=== PATIENT | female | born 1995 | race Caucasian/White ===

== ENCOUNTER → 2018-01-24 | Outpatient (CLI) | payer BC ==
--- NOTE | 2018-01-24 15:45 | CT ---
EXAMINATION TYPE: CT sinus wo con DATE OF EXAM: 01/24/2018 COMPARISON: NONE HISTORY: WOOTEN and head pressure due to sinusitis CT DLP: 633 mGycm. Automated Exposure Control for Dose Reduction was Utilized. TECHNIQUE: CT scan of the sinuses is performed without contrast, axial images are obtained, coronal r eformatted images are also reviewed. FINDINGS: There is mucosal thickening involving the maxillary antrum bilaterally. Tiny mucous retenti on cyst or polyps noted. Ostiomeatal complex patent bilaterally. Frontal sinus, ethmoid air cells, and sphenoid sinuses have a normal appearance. No air-fluid levels. The ostiomeatal complex is patent bilaterally on the coronal images. Visualized portion of mastoid air cells show no abnormal opacification. The globes are intact bilate rally. IMPRESSION: Mild chronic maxillary sinusitis.
== END | disposition home or self-care (01) ==
LOC: RADCTMAIN 15:16
PROVIDERS: ATTEND Otolaryngology
DX: J32.0 Chronic maxillary sinusitis (principal)
CPT/HCPCS: 70486

== ENCOUNTER 2020-09-02 06:58 | Emergency (ER) | payer BC ==
[2020-09-02 07:08] VITALS: TEMP 97.6
[2020-09-02] MEDS ORDERED: KETOROLAC 15 MG/ML 1 ML VIAL IVP STA (07:17)
--- NOTE | 2020-09-02 07:23 | ED ---
General Adult HPI - General Chief complaint: Chest Pain Stated complaint: Chest Pain Time Seen by Provider: 09/02/20 07:06 Source: patient, family Mode of arrival: ambulatory Limitations: no limitations - History of Present Illness Initial comments: Patient is a 24-year-old female presenting to the emergency Department with complaints of chest pain started approximately 8:30 last night. Patient states she noticed the pain increasing when she took in a deep breath. She also states that if she lays a certain position or turns either towards the left or right with her torso increases the pain as well. She denies any falls or trauma. She denies any shortness of breath, no recent fever or chills. She denies any recent illness. She denies any nausea or vomiting, she denies being . She denies any increase in activity or any new activities. She has no further complaints at this time. Upon arrival to the ER, she has tachycardia at 114, rest of vitals are normal. - Related Data Home Medications Medication Instructions Recorded Confirmed Ethinyl Estradiol/Drospirenone 1 tab PO DAILY 09/02/20 09/02/20 [Tabatha 28 Tablet] Fexofenadine/Pseudoephedrine 1 tab PO DAILY 09/02/20 09/02/20 [Stephanie-D 12 Hour Tablet] Loratadine [Claritin] 10 mg PO DAILY 09/02/20 09/02/20 Previous Rx's Medication Instructions Recorded Azithromycin [Zithromax Z-pack (6 0 mg PO DIRECTED #1 pack 09/02/20 tabs)] Allergies Allergy/AdvReac Type Severity Reaction Status Date / Time Penicillins Allergy family Verified 09/02/20 08:13 history tree and shrub pollen Allergy Dyspnea Verified 09/02/20 08:13 birds Allergy Dyspnea Uncoded 09/02/20 08:13 Review of Systems ROS Statement: Those systems with pertinent positive or pertinent negative responses have been documented in the HPI. ROS Other: All systems not noted in ROS Statement are negative. Past Medical History Past Medical History: No Reported History Additional Past Medical History / Comment(s): kidney stones post flu History of Any Multi-Drug Resistant Organisms: None Reported Past Surgical History: Appendectomy Additional Past Surgical History / Comment(s): colonoscopy Past Anesthesia/Blood Transfusion Reactions: No Reported Reaction, Motion Sickness Past Psychological History: No Psychological Hx Reported Smoking Status: Never smoker Past Alcohol Use History: Occasional Past Drug Use History: None Reported General Exam - General Exam Comments Initial Comments: GENERAL: Patient is well-developed and well-nourished. Patient is nontoxic and in no acute distress. HEAD: Atraumatic, normocephalic. EYES: Pupils equal round and reactive to light, extraocular movements intact, sclera anicteric, conjunctiva are normal. Eyelids were unremarkable. ENT: TMs normal, nares patent, oropharynx clear without exudates. Moist mucous membranes. NECK: Normal range of motion, supple without lymphadenopathy or JVD. LUNGS: Unlabored respirations. Breath sounds clear to auscultation bilaterally and equal. No wheezes rales or rhonchi. HEART: Slightly tachycardia rate and rhythm without murmurs, rubs or gallops. ABDOMEN: Soft, nontender, normoactive bowel sounds. No guarding, no rebound. No masses appreciated. : Deferred MUSCULOSKELETAL: Normal extremities with adequate strength and normal range of motion, no pitting or edema. No clubbing or cyanosis. NEUROLOGICAL: Patient is alert and oriented x 3. Motor and sensory are also intact. Cranial nerves II through XII grossly intact. Symmetrical smile. Normal speech, normal gait. PSYCH: Normal mood, normal affect. SKIN: Warm, Dry, normal turgor, no rashes or lesions noted. 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 Ventricular rate 91, NE interval 146, QT 374. Medical Decision Making - Medical Decision Making Patient's 24-year-old female here for chest pain that started approximately 8:30 last night. No falls or trauma. She has tachycardia upon arrival at 114, rest of vitals are normal, no fevers. EKG shows no acute changes. Labs are unremarkable, negative d-dimer, negative troponin. Chest x-ray shows a new left lateral posterior basilar acute infiltrate. I did offer patient Toradol however she declined. I discussed these findings with the patient. He also discussed getting Covid tested however patient declined at this time. Patient will be started on azithromycin for pneumonia. She is stable for discharge. She can follow-up with her regular doctor. She can also take ibuprofen or Tylenol for discomfort. She is in agreement with this plan of care. Return parameters were discussed with the patient she verbalized understanding. Case discussed with Dr. Johns. - Lab Data Result diagrams: 09/02/20 07:22 09/02/20 07:22 Lab Results 09/02/20 09/02/20 09/02/20 Range/Units 07:22 07:22 07:22 WBC 5.0 (3.8-10.6) k/uL RBC 4.45 (3.80-5.40) m/uL Hgb 13.4 (11.4-16.0) gm/dL Hct 38.8 (34.0-46.0) % MCV 87.2 (80.0-100.0) fL MCH 30.2 (25.0-35.0) pg MCHC 34.6 (31.0-37.0) g/dL RDW 12.4 (11.5-15.5) % Plt Count 270 (150-450) k/uL MPV 6.9 Neutrophils % 57 % Lymphocytes % 30 % Monocytes % 7 % Eosinophils % 3 % Basophils % 1 % Neutrophils # 2.8 (1.3-7.7) k/uL Lymphocytes # 1.5 (1.0-4.8) k/uL Monocytes # 0.3 (0-1.0) k/uL Eosinophils # 0.1 (0-0.7) k/uL Basophils # 0.1 (0-0.2) k/uL D-Dimer 0.47 (<0.60) mg/L FEU Sodium 137 (137-145) mmol/L Potassium 4.0 (3.5-5.1) mmol/L Chloride 105 (98-107) mmol/L Carbon Dioxide 27 (22-30) mmol/L Anion Gap 5 mmol/L BUN 10 (7-17) mg/dL Creatinine 0.68 (0.52-1.04) mg/dL Est GFR (CKD-EPI)AfAm >90 (>60 ml/min/1.73 sqM) Est GFR (CKD-EPI)NonAf >90 (>60 ml/min/1.73 sqM) Glucose 91 (74-99) mg/dL Calcium 9.3 (8.4-10.2) mg/dL Total Bilirubin 0.5 (0.2-1.3) mg/dL AST 21 (14-36) U/L ALT 14 (4-34) U/L Alkaline Phosphatase 84 (38-126) U/L Troponin I (0.000-0.034) ng/mL Total Protein 7.4 (6.3-8.2) g/dL Albumin 4.0 (3.5-5.0) g/dL 09/02/20 Range/Units 07:22 WBC (3.8-10.6) k/uL RBC (3.80-5.40) m/uL Hgb (11.4-16.0) gm/dL Hct (34.0-46.0) % MCV (80.0-100.0) fL MCH (25.0-35.0) pg MCHC (31.0-37.0) g/dL RDW (11.5-15.5) % Plt Count (150-450) k/uL MPV Neutrophils % % Lymphocytes % % Monocytes % % Eosinophils % % Basophils % % Neutrophils # (1.3-7.7) k/uL Lymphocytes # (1.0-4.8) k/uL Monocytes # (0-1.0) k/uL Eosinophils # (0-0.7) k/uL Basophils # (0-0.2) k/uL D-Dimer (<0.60) mg/L FEU Sodium (137-145) mmol/L Potassium (3.5-5.1) mmol/L Chloride (98-107) mmol/L Carbon Dioxide (22-30) mmol/L Anion Gap mmol/L BUN (7-17) mg/dL Creatinine (0.52-1.04) mg/dL Est GFR (CKD-EPI)AfAm (>60 ml/min/1.73 sqM) Est GFR (CKD-EPI)NonAf (>60 ml/min/1.73 sqM) Glucose (74-99) mg/dL Calcium (8.4-10.2) mg/dL Total Bilirubin (0.2-1.3) mg/dL AST (14-36) U/L ALT (4-34) U/L Alkaline Phosphatase (38-126) U/L Troponin I <0.012 (0.000-0.034) ng/mL Total Protein (6.3-8.2) g/dL Albumin (3.5-5.0) g/dL Disposition Clinical Impression: Atypical chest pain, Pneumonia Disposition: HOME SELF-CARE Condition: Stable Instructions (If sedation given, give patient instructions): Pneumonia (ED) Additional Instructions: Please return to the Emergency Department if symptoms worsen or any other concerns. Take antibiotics as prescribed. May take ibuprofen or Tylenol for any discomfort. Follow up with your regular doctor. Prescriptions: Azithromycin [Zithromax Z-pack (6 tabs)] 0 mg PO DIRECTED #1 pack Is patient prescribed a controlled substance at d/c from ED?: No Referrals: Jackie Hoover MD [Primary Care Provider] - 1-2 days
[2020-09-02 07:30] LABS: Basophils # (A) 0.1 k/uL (0-0.2); Basophils % (A) 1 %; Eosinophils # (A) 0.1 k/uL (0-0.7); Eosinophils % (A) 3 %; HCT 38.8 % (34.0-46.0); HGB 13.4 gm/dL (11.4-16.0); Lymphocytes # (A) 1.5 k/uL (1.0-4.8); Lymphocytes % (A) 30 %; MCH 30.2 pg (25.0-35.0); MCHC 34.6 g/dL (31.0-37.0); MCV 87.2 fL (80.0-100.0); Mean Platelet Volume 6.9; Monocytes # (A) 0.3 k/uL (0-1.0); Monocytes % (A) 7 %; Neutrophils # (A) 2.8 k/uL (1.3-7.7); Neutrophils % (A) 57 %; Platelet Count 270 k/uL (150-450); RBC 4.45 m/uL (3.80-5.40); RDW 12.4 % (11.5-15.5)
[2020-09-02 07:37] VITALS: RESP 18
[2020-09-02 07:39] LABS: ALT 14 U/L (4-34); AST 21 U/L (14-36); African American GFR (CKD) >90 (>60 ml/min/1.73 sqM); Alkaline Phosphatase 84 U/L (38-126); Anion Gap 5 mmol/L; Blood Urea Nitrogen 10 mg/dL (7-17); Calcium 9.3 mg/dL (8.4-10.2); Carbon Dioxide 27 mmol/L (22-30); Chloride 105 mmol/L (98-107); Glucose 91 mg/dL (74-99); Non-African American GFR(CKD) >90 (>60 ml/min/1.73 sqM); Sodium 137 mmol/L (137-145); Total Bilirubin 0.5 mg/dL (0.2-1.3); Total Protein 7.4 g/dL (6.3-8.2)
--- NOTE | 2020-09-02 07:57 | XR ---
EXAMINATION TYPE: XR chest 2V DATE OF EXAM: 09/02/2020 COMPARISON: Chest x-ray [birth year] 1999 HISTORY: Chest pain for 12 hours. TECHNIQUE: Frontal and lateral views of the chest are obtained. FINDINGS: There is new patchy lateral left basilar opacity localize posteriorly on lateral view. Ri ght lung is clear. The cardiac silhouette size remains within normal limits. The osseous structures are intact. IMPRESSION: New left Lateral posterior basilar acute infiltrate.
[2020-09-02 08:21] VITALS: BP 100/76; PULSE 74
== END 2020-09-02 08:23 | disposition home or self-care (01) ==
LOC: EC 06:58
DX: J18.9 Pneumonia, unspecified organism (principal); Z53.29 Procedure and treatment not carried out because of patient's decision for other reasons; Z79.899 Other long term (current) drug therapy; Z88.0 Allergy status to penicillin; Z91.048 Other nonmedicinal substance allergy status; Z91.09 Other allergy status, other than to drugs and biological substances
CPT/HCPCS: 36415; 71046; 80053; 84484; 85025; 85379; 93005; 99285

== ENCOUNTER 2020-11-11 09:34 | Day surgery (SDC) | payer BC ==
[2020-11-10 08:06] VITALS: BMI 25.2
[~2020-11-11 09:34] MED LIST: LACTATED RINGERS 1,000 ML IV SCH
[2020-11-11 10:11] VITALS: RESP 16; TEMP 98.3
[2020-11-11] MEDS ORDERED: LIDOCAINE 1% (10MG/ML) FOR IV START INTRADERMA ONE (10:15)
[2020-11-11] MEDS ORDERED: PROPOFOL 10 MG/ML 20 ML VIAL IV ONE (10:16)
--- NOTE | 2020-11-11 10:22 | P.GSHP ---
History of Present Illness H&P Date: 11/11/20 Chief Complaint: Rectal bleeding 25-year-old female here today for rectal bleeding. Apparently she had a colonoscopy 5-6 years ago that was normal. Bleeding is heavy at times. No pain. No family history of colon cancer. Past Medical History Past Medical History: No Reported History Additional Past Medical History / Comment(s): bleeding with stool, hx kidney stones post flu History of Any Multi-Drug Resistant Organisms: None Reported Past Surgical History: Appendectomy Additional Past Surgical History / Comment(s): colonoscopy Past Anesthesia/Blood Transfusion Reactions: No Reported Reaction, Motion Sickness Smoking Status: Never smoker - Past Family History Mother Family Medical History: Cancer Additional Family Medical History / Comment(s): breast CA Medications and Allergies Home Medications Medication Instructions Recorded Confirmed Type Ethinyl Estradiol/Drospirenone 1 tab PO QAM 09/02/20 11/11/20 History [Tabatha 28 Tablet] Fexofenadine/Pseudoephedrine 1 tab PO DAILY 09/02/20 11/11/20 History [Stephanie-D 12 Hour Tablet] Allergies Allergy/AdvReac Type Severity Reaction Status Date / Time Penicillins Allergy family Verified 11/10/20 08:01 history tree and shrub pollen Allergy Dyspnea Verified 11/10/20 08:01 birds Allergy Dyspnea Uncoded 11/10/20 08:01 Surgical - Exam Vital Signs Temp Pulse Resp BP Pulse Ox 98.3 F 97 16 119/67 96 11/11/20 10:08 11/11/20 10:08 11/11/20 10:08 11/11/20 10:08 11/11/20 10:08 Physical exam: General: Well-developed, well-nourished HEENT: Normocephalic, sclerae nonicteric Abdomen: Nontender, nondistended Extremities: No edema Neuro: Alert and oriented Assessment and Plan (1) Rectal bleeding Narrative/Plan: Will proceed with colonoscopy Current Visit: Yes Status: Acute Code(s): K62.5 - HEMORRHAGE OF ANUS AND RECTUM SNOMED Code(s): 67918390
--- NOTE | 2020-11-11 10:36 | P.PCN ---
Date of Procedure: 11/11/20 Procedure(s) Performed: PREOPERATIVE DIAGNOSIS: Rectal bleeding POSTOPERATIVE DIAGNOSIS: Posterior anal fissure PROCEDURE: Colonoscopy ANESTHESIA: MAC SURGEON: Frederick Singh M.D. SPECIMENS: None ENDOSCOPIC PROCEDURE: The patient was placed on the endoscopy table in the left decubitus position. The Olympus colonoscope was inserted into the anus and passed under direct visualization to the base of the cecum. The appendiceal orifice was visualized. From that point the scope was slowly withdrawn insp ecting all surfaces carefully. There were no neoplastic inflammatory or polypoid lesions throughout the cecum, ascending, transverse, descending, sigmoid and rectum. There was no visible diverticulosis noted. Digital rectal examination revealed a small posterior anal fissure with no evidence of active bleeding. The patient was taken to the recovery room in stable condition per anesthesia guidelines. RECOMMENDATIONS: Begin topical nitroglycerin ointment. Follow-up if symptoms persist.
[2020-11-11 10:53] VITALS: BP 123/89; PULSE 77
== END 2020-11-11 11:19 | disposition home or self-care (01) ==
LOC: ORWHC2ENDO 09:34
PROVIDERS: ATTEND Surgery
DX: K60.2 Anal fissure, unspecified (principal); Z87.442 Personal history of urinary calculi; Z90.89 Acquired absence of other organs; Z98.890 Other specified postprocedural states; Z80.3 Family history of malignant neoplasm of breast; Z79.3 Long term (current) use of hormonal contraceptives; Z79.899 Other long term (current) drug therapy; Z88.0 Allergy status to penicillin; Z91.048 Other nonmedicinal substance allergy status; Z91.09 Other allergy status, other than to drugs and biological substances
CPT/HCPCS: 81025; 45378; J2704

== ENCOUNTER → 2021-09-07 | Outpatient (CLI) | payer BC ==
[~2021-09-07] MED LIST changes: -LACTATED RINGERS 1,000 ML IV SCH; +METHOTREXATE SODIUM (PF) 25 MG/ML 2 ML VIAL IM NR; +METHOTREXATE SODIUM IM NR
[2021-09-07 14:44] VITALS: BP 112/66; PULSE 88; RESP 16; TEMP 98.2
== END ==
LOC: PROCWHC3 14:17
PROVIDERS: ATTEND Obstetrics & Gynecology
DX: O00.90 Unspecified ectopic pregnancy without intrauterine pregnancy (principal)
CPT/HCPCS: 96402; J9260

== ENCOUNTER → 2022-05-25 | Outpatient (CLI) | payer BC ==
--- NOTE | 2022-05-25 22:10 | US ---
EXAMINATION TYPE: Transabdominal DATE OF EXAM: 05/25/2022 4:00 PM COMPARISON: 11/24/2021. CLINICAL HISTORY: Z36.89 ENCOUNTER FOR OTHER SPECIFIED SCR. Confirm dates EXAM PERFORMED: Transabdominal (TA) EXAM MEASUREMENTS: GESTATIONAL AGE / DATING Physician Established: Not yet established Dates by LMP: (9 weeks/6 days) EDC: 12/22/22 Dates by First Scan: No previous this is first scan Dates by Current Scan for: (9 weeks/3 days) EDC: 12/25/22 MATERNAL ANATOMY Uterus: 9.6 x 5.5 x 8.4cm Right Ovary: 2.9 x 2.8 x 2.3cm Left Ovary: 5.7 x 7.1 x 3.8cm Post CDS / Adnexa: wnl Presence of free fluid: no Presence of corpus luteal cyst: cystic area left ovary = 6.1 x 4.4 x 5.5cm Presence of subchorionic bleed: no GESTATION / SURVEY CRL: 2.6cm (9 weeks/3 days) Yolk Sac (normal less than 6mm): 0.4cm Heart Rate: 156 bpm Rhythm: Normal IUP: Viable IUP Date of LMP: 03/17/22 Beta HcG (if available): Not available at this time IMPRESSION: 1. Single live intrauterine gestation with ultrasound age of 9 weeks 3 days. 2. Large cystic area within left ovary measuring up to 6.1 cm. New from 11/24/2021.
== END | disposition home or self-care (01) ==
LOC: RADUSWWP 15:37
PROVIDERS: ATTEND Obstetrics & Gynecology
DX: O34.81 Maternal care for other abnormalities of pelvic organs, first trimester (principal); Z3A.09 9 weeks gestation of pregnancy
CPT/HCPCS: 76801

== ENCOUNTER 2022-11-18 10:34 | Outpatient (CLI) | payer BC ==
[2022-11-18 11:32] VITALS: BP 120/77; PULSE 110; RESP 16; TEMP 97.5
--- NOTE | 2022-11-18 19:46 | P.MSEPDOC ---
Presenting Problems - Arrival Data Date of Arrival on Unit: 11/18/22 Time of Arrival on Unit: 10:34 Mode of Transport: Ambulatory - Complaint OB-Reason for Admission/Chief Complaint: Headache, Other Comment: lower extremity edema Medical History - Information : 1 Para: 0 Term: 0 : 0 Abortions: Spontaneous or Elective: 0 Number of Living Children: 0 - Gestational Age Gestational Age by MARIE (wks/days): 35 Weeks and 1 Days Review of Systems - Review of Systems Constitutional: No problems Breast: No problems ENT: No problems Cardiovascular: No problems Respiratory: No problems Gastrointestinal: No problems Genitourinary: No problems Musculoskeletal: No problems Neurological: No problems Skin: No problems Vital Signs - Temperature Temperature: 97.5 F Temperature Source: Temporal Artery Scan - Pulse Pulse Oximetery Pulse Rate: 110 Pulse Assessment Method: Pulse Oximetry - Respirations Respiratory Rate: 16 Oxygen Delivery Method: Room Air O2 Sat by Pulse Oximetry: 96 - Blood Pressure Right Arm Blood Pressure: 120/77 Blood Pressure Mean: 91 Blood Pressure Source: Automatic Cuff Medical Screen Scoring - Assessment - Baby A Baseline FHR: 150 Heart Rate - NICHD Category: Category I (Normal) NST: Reactive Physician Notification - Physician Notified Physician Notified Date: 11/18/22 Physician Notified Time: 11:02 Physician: Nolberto Tucker New Order Received: Yes - Notification Comment Comment: Dr. Tucker on unit, report given on maternal c/o ankle and feet edema (2+. edema noted), WOOTEN last week. Pt denies any other pre-e symptoms and current BPs are. 120/77 and 119/77. Orders to obtain NST and once reactive pt can be discharged home with. instructions to increase rest and elevate legs. Maternal Triage Index - Maternal Triage Index Presenting for scheduled procedure w/no complaint: No - Stat/Priority 1 Stat Priority 1: No - Urgent/Priority 2 Urgent Priority 2: No - Prompt/Priority 3 Prompt Priority 3: No - Non-Urgent/Priority 4 Non-Urgent Priority 4: Yes Criteria Met for Priority 4: 35 1/7wks, WOOTEN (last week), lower extremity edema, initial BP 120/77 Disposition - Disposition OB Disposition: Discharge to home Discharge Date: 11/18/22 Discharge Time: 11:20 I agree with the RN Medical Screening Exam: Yes Case reviewed; plan agreed upon as documented in EMR&OBIX.: Yes Diagnosis: RELATED CONDITIONS, UNSPECIFIED, THIRD TRIMESTER (Patient presents to labor and delivery with concerns about elevated blood pressures. She had some swelling and headaches at home. The pressures here and in the o ffice were completely normal. At this time there is no evidence of preeclampsia. Patient discharged home follow up with Dr. Burnett as scheduled.)
== END 2022-11-18 11:20 | disposition home or self-care (01) ==
LOC: FBPOP 10:34
PROVIDERS: ATTEND Obstetrics & Gynecology
DX: O26.893 Other specified pregnancy related conditions, third trimester (principal); Z3A.35 35 weeks gestation of pregnancy; Z88.0 Allergy status to penicillin; Z91.048 Other nonmedicinal substance allergy status
CPT/HCPCS: 59025; 99213

== ENCOUNTER 2022-12-09 05:44 | Inpatient (IN) | payer BC ==
[2022-12-09] MEDS ORDERED: CARBOPROST TROMETHAMINE 250 MCG/ML 1 ML AMP IM PRN (06:01)
[2022-12-09] MEDS ORDERED: METHYLERGONOVINE 0.2 MG/ML 1 ML AMP IM PRN (06:01)
[2022-12-09] MEDS ORDERED: LIDOCAINE 0.5% (PF) 5 MG/ML (50 ML SDV) SQ PRN (06:01)
[2022-12-09] MEDS ORDERED: TERBUTALINE 1 MG/ML VIAL SQ PRN (06:01)
[2022-12-09] MEDS ORDERED: TRANEXAMIC ACID IN NACL,ISO-OS 1,000 MG in EMPTY BAG 1 BAG IV PRN (06:01)
[2022-12-09] MEDS ORDERED: miSOPROStoL 200 MCG TAB PO PRN (06:01)
[2022-12-09] MEDS ORDERED: OXYTOCIN 10 UNIT/ML 1 ML VIAL IM PRN (06:01)
[2022-12-09] MEDS ORDERED: CLINDAMYCIN 900 MG in DEXTROSE 5% IN WATER 50 ML IVPB STA ×2 (06:33)
[2022-12-09] MEDS ORDERED: OXYTOCIN 30 UNITS/500 ML NS 30 UNIT in SALINE 1 500ML.BAG IV SCH ×2 (06:45→17:15)
[2022-12-09] MEDS: LACTATED RINGERS 1,000 ML IV SCH ×2 (07:03→23:32)
[2022-12-09 08:48] LABS: Basophils % (A) 0 %; Eosinophils # (A) 0.1 k/uL (0-0.7); Eosinophils % (A) 1 %; HCT 35.7 % (34.0-46.0); Lymphocytes # (A) 1.7 k/uL (1.0-4.8); Lymphocytes % (A) 21 %; MCH 30.1 pg (25.0-35.0); MCHC 33.6 g/dL (31.0-37.0); MCV 89.5 fL (80.0-100.0); Mean Platelet Volume 11.5; Monocytes # (A) 0.5 k/uL (0-1.0); Monocytes % (A) 6 %; Neutrophils # (A) 5.4 k/uL (1.3-7.7); Neutrophils % (A) 67 %; Platelet Count 301 k/uL (150-450); Poikilocytosis Slight; RBC 3.98 m/uL (3.80-5.40); RDW 14.1 % (11.5-15.5); WBC 8.1 k/uL (3.8-10.6)
--- NOTE | 2022-12-09 08:56 | P.HPOB ---
History of Present Illness H&P Date: 12/09/22 Chief Complaint: induction of labor 27 year old presents for induction of labor at 38 weeks 1 day for IUGR. Her cervix is 1-2/80/-2. She is jaclyn irregularly. heart tones 140 with moderate variability and reactive. Review of Systems All systems: negative Constitutional: Denies chills, Denies fever Eyes: denies blurred vision, denies pain Ears, nose, mouth and throat: Denies headache, Denies sore throat Cardiovascular: Denies chest pain, Denies shortness of breath Respiratory: Denies cough Gastrointestinal: Denies abdominal pain, Denies diarrhea, Denies nausea, Denies vomiting Genitourinary: Denies dysuria, Denies hematuria Musculoskeletal: Denies myalgias Integumentary: Denies pruritus, Denies rash Neurological: Denies numbness, Denies weakness Psychiatric: Denies anxiety, Denies depression Endocrine: Denies fatigue, Denies weight change Past Medical History Past Medical History: No Reported History Additional Past Medical History / Comment(s): bleeding with stool, hx kidney stones post flu History of Any Multi-Drug Resistant Organisms: None Reported Past Surgical History: Appendectomy Additional Past Surgical History / Comment(s): colonoscopy Past Anesthesia/Blood Transfusion Reactions: No Reported Reaction, Motion Sickness Past Psychological History: No Psychological Hx Reported Smoking Status: Never smoker Past Alcohol Use History: Occasional Past Drug Use History: None Reported - Past Family History Mother Family Medical History: Cancer Additional Family Medical History / Comment(s): breast CA Medications and Allergies Home Medications Medication Instructions Recorded Confirmed Type Fexofenadine HCl [Stephanie Allergy] 180 mg PO DAILY 11/18/22 12/09/22 History Vit No.179/Iron/Folic 1 each PO DAILY 11/18/22 12/09/22 History [ Tablet] Allergies Allergy/AdvReac Type Severity Reaction Status Date / Time Penicillins Allergy family Verified 12/09/22 06:00 history tree and shrub pollen Allergy Dyspnea Verified 12/09/22 06:00 birds Allergy Dyspnea Uncoded 12/09/22 06:00 Exam Osteopathic Statement: *. No significant issues noted on an osteopathic structural exam other than those noted in the History and Physical/Consult. Vital Signs Temp Pulse Resp BP Pulse Ox 12/09/22 05:55 96.8 F L 83 16 115/74 100 Intake and Output 12/08/22 12/09/22 12/09/22 22:59 06:59 14:59 Other: Weight 107.501 kg Heart: Regular rate and rhythm Lungs: Clear to auscultation bilaterally Abdomen: Soft, nontender Extremities: Negative Homans sign Results Result Diagrams: 12/09/22 06:29 Assessment and Plan (1) Encounter for induction of labor Current Visit: Yes Status: Acute Code(s): Z34.90 - ENCNTR FOR SUPRVSN OF NORMAL , UNSP, UNSP TRIMESTER SNOMED Code(s): 128444579 (2) IUGR (intrauterine growth restriction) affecting care of mother Current Visit: Yes Status: Acute Code(s): O36.5990 - MATERN CARE FOR OTH OR SUSP POOR FETL GRTH, UNSP TRI, UNSP SNOMED Code(s): 366188671 Plan: 1. admit to [facility] 2. induction of labor with amniotomy and pitocin 3. anticipate normal vaginal delivery
[2022-12-09] MEDS ORDERED: BUTORPHANOL 2 MG/ML 1 ML VIAL IV PRN (11:11)
[2022-12-09] MEDS ORDERED: SODIUM CHLORIDE 0.9% 100 ML BAG ONE (12:17)
[2022-12-09] MEDS ORDERED: fentaNYL (PF) 50 MCG/ML 5 ML AMP ONE (12:17)
[2022-12-09] MEDS ORDERED: ROPIVACAINE 5 MG/ML 20 ML AMPULE ONE (12:17)
[2022-12-09] MEDS ORDERED: CLINDAMYCIN 900 MG in DEXTROSE 5% IN WATER 50 ML IVPB SCH ×2 (15:00)
[2022-12-09] MEDS ORDERED: BENZOCAINE/MENTHOL SPRAY 1 GM/SPRAY AEROSOL TOPICAL PRN (17:06)
[2022-12-09] MEDS ORDERED: diphenhydrAMINE 25 MG CAP PO PRN (17:06)
[2022-12-09] MEDS ORDERED: SIMETHICONE 80 MG CHEWABLE PO PRN (17:06)
[2022-12-09] MEDS ORDERED: ZOLPIDEM 5 MG TAB PO PRN (17:06)
[2022-12-09] MEDS ORDERED: diphenhydrAMINE 50 MG CAP PO PRN (17:06)
[2022-12-09] MEDS: IBUPROFEN 600 MG TAB PO PRN (18:37)
[2022-12-09] MEDS: SENNOSIDES-DOCUSATE SODIUM 1 EACH TAB PO SCH (20:33)
[2022-12-09] MEDS: ACETAMINOPHEN TAB 325 MG TAB PO PRN (20:33)
[2022-12-10] MEDS: IBUPROFEN 600 MG TAB PO PRN ×3 (02:14→17:45)
[2022-12-10 07:01] LABS: Basophils % (A) 0 %; Eosinophils # (A) 0.1 k/uL (0-0.7); Eosinophils % (A) 1 %; HCT 32.3 % (34.0-46.0); HGB 10.9 gm/dL (11.4-16.0); Lymphocytes # (A) 1.4 k/uL (1.0-4.8); Lymphocytes % (A) 19 %; MCH 30.4 pg (25.0-35.0); MCHC 33.7 g/dL (31.0-37.0); MCV 90.1 fL (80.0-100.0); Mean Platelet Volume 9.1; Monocytes # (A) 0.5 k/uL (0-1.0); Monocytes % (A) 6 %; Neutrophils # (A) 5.5 k/uL (1.3-7.7); Neutrophils % (A) 71 %; Platelet Count 245 k/uL (150-450); RBC 3.58 m/uL (3.80-5.40); RDW 14.1 % (11.5-15.5); WBC 7.7 k/uL (3.8-10.6)
--- NOTE | 2022-12-10 08:08 | P.PROBDLV ---
Vaginal Delivery Note - . Vaginal Delivery Note: 27 year old presents for induction of labor at 38 weeks 1 day for IUGR. Her cervix is 1-2/80/-2. She is jaclyn irregularly. heart tones 140 with moderate variability and reactive. Pitocin was started and amniotomy performed at 7:45 AM and clear fluid noted. When she was uncomfortable she did get an epidural. Her cervix was completely dilated at 1459. She pushed, delivered a viable male infant over intact perineum under epidural anesthesia at 1530. Head delivered OA, anterior shoulder delivered gentle downward guidance on the posterior shoulder and rest of body. Nose and mouth bulb suctioned, cord clamped and cut, placed on mother's abdomen. Apgars 8, 9, weight 5 pounds 13.8 ounces. Placenta delivered spontaneously, intact with three-vessel cord at 1532. Vagina, cervix, perineum inspected. First-degree midline laceration was repaired with 3-0 Vicryl. Estimated blood loss 100 mL. Mother and baby in stable condition.
--- NOTE | 2022-12-10 08:10 | P.DS ---
Providers Date of admission: 12/09/22 05:44 Expected date of discharge: 12/10/22 Attending physician: Linh Burnett Primary care physician: Stated None - Discharge Diagnosis(es) (1) Encounter for induction of labor Current Visit: Yes Status: Resolved (2) IUGR (intrauterine growth restriction) affecting care of mother Current Visit: Yes Status: Resolved (3) Normal vaginal delivery Current Visit: Yes Status: Acute Hospital Course: Patient presented for induction of labor due to IUGR. She underwent a normal vaginal delivery. Her course has been uncomplicated. She denies nausea, vomiting, chest pain, shortness of breath or calf pain. Patient will be discharged home day 1 in stable condition to follow-up with me in 6 weeks. Plan - Discharge Summary New Discharge Prescriptions: New Ibuprofen [Motrin] 600 mg PO Q6HR PRN #30 tab PRN Reason: Mild Pain (Scale 1 To 3) No Action Fexofenadine HCl [Stephanie Allergy] 180 mg PO DAILY Vit No.179/Iron/Folic [ Tablet] 1 each PO DAILY Discharge Medication List Fexofenadine HCl [Stephanie Allergy] 180 mg PO DAILY 11/18/22 [History] Vit No.179/Iron/Folic [ Tablet] 1 each PO DAILY 11/18/22 [History] Ibuprofen [Motrin] 600 mg PO Q6HR PRN #30 tab 12/10/22 [Rx] Follow up Appointment(s)/Referral(s): Linh Burnett DO [Doctor of Osteopathic Medicine] - 01/24/23 3:45 pm Discharge Disposition: HOME SELF-CARE
[2022-12-10] MEDS: SENNOSIDES-DOCUSATE SODIUM 1 EACH TAB PO SCH ×2 (08:28→20:37)
[2022-12-10 17:09] VITALS: RESP 16
[2022-12-10] MEDS: ACETAMINOPHEN TAB 325 MG TAB PO PRN (20:42)
[2022-12-11 00:15] VITALS: TEMP 97.7
[2022-12-11 08:17] VITALS: BP 120/79; PULSE 104
[2022-12-11] MEDS: IBUPROFEN 600 MG TAB PO PRN (08:30)
[2022-12-11] MEDS: SENNOSIDES-DOCUSATE SODIUM 1 EACH TAB PO SCH (10:00)
== END 2022-12-11 10:44 | disposition home or self-care (01) | DRG 807 ==
LOC: 4FBP 05:44
PROVIDERS: ADMIT Obstetrics & Gynecology; ATTEND Obstetrics & Gynecology
PROC: 10E0XZZ Delivery of Products of Conception, External Approach (ICD-10-PCS; principal; 2022-12-09)
PROC: 0HQ9XZZ Repair Perineum Skin, External Approach (ICD-10-PCS; 2022-12-09)
PROC: 10907ZC Drainage of Amniotic Fluid, Therapeutic from Products of Conception, Via Natural or Artificial Opening (ICD-10-PCS; 2022-12-09)
PROC: 3E033VJ Introduction of Other Hormone into Peripheral Vein, Percutaneous Approach (ICD-10-PCS; 2022-12-09)
DX: O36.5930 Maternal care for other known or suspected poor fetal growth, third trimester, not applicable or unspecified (principal); Z37.0 Single live birth; O70.0 First degree perineal laceration during delivery; Z3A.38 38 weeks gestation of pregnancy
CPT/HCPCS: 85025; 86850; 86900; 86901; 88307